=== PATIENT | female | born 1965 | race Caucasian/White ===

== ENCOUNTER → 2018-08-09 | Outpatient (CLI) | payer OTHER ==
[~2018-08-09] MED LIST: CALCIUM CHANNEL BLOC; CYCL10 PO; Dazidox10 MG PO; IBUP600 PO; NITR.4SL SL; OXYACE5T PO; OXYC5 PO; XARELTO15 MG PO; XARELTO20 MG PO
== END | disposition home or self-care (01) ==
LOC: LAB 17:46 → LAB SHORT 17:46
DX: H66.90 Otitis media, unspecified, unspecified ear (principal); H72.91 Unspecified perforation of tympanic membrane, right ear; H60.501 Unspecified acute noninfective otitis externa, right ear
CPT/HCPCS: 87070; 87077; 87186; 87205

== ENCOUNTER → 2019-12-12 | Outpatient (CLI) | payer OTHER | END | disposition home or self-care (01) | LOC: LAB SHORT 18:39 → LAB 18:39 | DX: A49.8 Other bacterial infections of unspecified site (principal) | CPT/HCPCS: 87070; 87205 ==

== ENCOUNTER 2020-11-22 17:08 | Emergency (ER) | payer OTHER ==
[~2020-11-22] VITALS: Ht 177.8 cm; Wt 79.4 kg
== END 2020-11-22 20:50 | disposition short-term general hospital (02) ==
LOC: ER 17:08
DX: S82.141A Displaced bicondylar fracture of right tibia, initial encounter for closed fracture (principal); S82.851A Displaced trimalleolar fracture of right lower leg, initial encounter for closed fracture; J44.9 Chronic obstructive pulmonary disease, unspecified; F17.200 Nicotine dependence, unspecified, uncomplicated; Z79.01 Long term (current) use of anticoagulants; Z79.899 Other long term (current) drug therapy; Z88.5 Allergy status to narcotic agent; Z88.4 Allergy status to anesthetic agent; W18.09XA Striking against other object with subsequent fall, initial encounter
CPT/HCPCS: 29505; 73552; 73590; 73600; 96374-59; 96375-59; 99284-25; J1170; J1885; J2405

== ENCOUNTER 2023-03-18 15:55 | Emergency (ER) | payer OTHER ==
[~2023-03-18] VITALS: Ht 180.3 cm; Wt 79.8 kg
[2023-03-18 16:38] VITALS: BP 114/60
[2023-03-18] MEDS ORDERED: Percocet 5-3251 EACH PO (20:40)
== END 2023-03-18 22:15 | disposition home or self-care (01) ==
LOC: ER 15:55
DX: S72.424A Nondisplaced fracture of lateral condyle of right femur, initial encounter for closed fracture (principal); X50.1XXA Overexertion from prolonged static or awkward postures, initial encounter; Z88.5 Allergy status to narcotic agent; Z79.899 Other long term (current) drug therapy; J44.9 Chronic obstructive pulmonary disease, unspecified; F17.210 Nicotine dependence, cigarettes, uncomplicated
CPT/HCPCS: 29505; 73562-RT; 99283-25; A9270

== ENCOUNTER 2025-06-16 20:53 | Emergency (ER) | payer OTHER ==
[~2025-06-16] VITALS: Ht 180.3 cm; Wt 68.0 kg
[~2025-06-16 20:53] MED LIST changes: +Percocet 5-3251 EACH PO
[2025-06-16 21:10] VITALS: BP 106/64
[2025-06-16] MEDS ORDERED: CIPROFLOX-DEXA7.5 ML BOTHEARS (22:14)
== END 2025-06-16 22:42 | disposition home or self-care (01) ==
LOC: ER 20:53
DX: S90.32XA Contusion of left foot, initial encounter (principal); W20.8XXA Other cause of strike by thrown, projected or falling object, initial encounter; H60.93 Unspecified otitis externa, bilateral; F17.210 Nicotine dependence, cigarettes, uncomplicated; Z88.5 Allergy status to narcotic agent; Z88.8 Allergy status to other drugs, medicaments and biological substances; Z79.01 Long term (current) use of anticoagulants
CPT/HCPCS: 73630; 99283-25